=== PATIENT | female | born 1955 | race African-American/Black ===

== ENCOUNTER 2021-02-13 16:47 | Emergency (ER) | payer MEDICARE, MEDICAID ==
[~2021-02-13] VITALS: Ht 170.2 cm; Wt 68.0 kg
[~2021-02-13 16:47] MED LIST: METF-444 PO
[2021-02-13 19:41] LABS: BASOPHILS % (AUTO) 0.8 % (0.0-2.0); EOSINOPHILS % (AUTO) 1.4 % (1.0-6.0); HEMATOCRIT 41.1 % (36-46); HEMOGLOBIN 12.9 g/dL (12.0-16.0); LYMPHOCYTES # (AUTO) 1.6 K/uL (1.0-4.8); LYMPHOCYTES % (AUTO) 23.2 % (22.0-44.0); MEAN CORPUSCULAR HEMOGLOBIN 23.7 pg (26.0-34.0); MEAN CORPUSCULAR HGB CONC 31.3 G/dL (31.0-37.0); MEAN CORPUSCULAR VOLUME 76 fL (80-100); MONOCYTES # (AUTO) 0.7 K/uL (0.1-1.0); MONOCYTES % (AUTO) 10.4 % (2.0-9.0); NEUTROPHILS # (AUTO) 4.3 K/uL (1.8-7.7); NEUTROPHILS % (AUTO) 64.2 % (40.0-70.0); PLATELET COUNT (AUTO) 221 K/uL (150-450); RED BLOOD CELL COUNT(AUTO) 5.43 MIL/uL (4.00-5.20); RED CELL DISTRIBUTION WIDTH 18.4 % (11.5-14.5)
[2021-02-13 19:43] LABS: CALCIUM, TOTAL 9.6 mg/dL (8.8-10.5); CREATININE 2.63 mg/dL (0.60-1.30)
[2021-02-13] MEDS: SODIUM CHLORIDE 0.9% 1,000 ML IV ONE ×2 (19:45→20:38)
[2021-02-13 19:48] LABS: ALBUMIN 4.5 g/dL (3.4-5.0); BILIRUBIN,TOTAL 0.1 mg/dL (0.1-1.0); TOTAL PROTEIN, SERUM 9.3 g/dL (6.4-8.2)
[2021-02-13] MEDS: BARIUM SULFATE 0.1% SUSPENSION 450 ML BOTTLE PO ONE ×2 (20:00→20:37)
[2021-02-13 20:56] VITALS: BP 97/46
== END 2021-02-13 23:30 | disposition left against medical advice (07) ==
LOC: EMS 16:50
DX: R10.11 Right upper quadrant pain (principal); F41.9 Anxiety disorder, unspecified; F17.210 Nicotine dependence, cigarettes, uncomplicated; N28.9 Disorder of kidney and ureter, unspecified; I10 Essential (primary) hypertension; E11.9 Type 2 diabetes mellitus without complications
CPT/HCPCS: 36415; 80053; 83690; 84484; 85025; 93005; 99284; J7030